=== PATIENT | female | born 1980 | race Caucasian/White ===

== ENCOUNTER 2019-02-27 03:17 | Emergency (ER) | payer OTHER, MEDICAID ==
[~2019-02-27] VITALS: Ht 157.5 cm; Wt 90.7 kg
[~2019-02-27 03:17] MED LIST: CIPROFLOXACIN500 M1 PO; IBUPROFEN 800800 M1 PO; MEDROLDOSEPACK PO; NOHOMEMEDICATIONS; NORCO 5-325 TA1 EACH PO; TAMSULOSIN HCL0.4 M1 PO; VENTOLIN HFA INH8 GM IH; ZPAK PO
[2019-02-27 04:00] VITALS: BP 112/71
[2019-02-27] MEDS ORDERED: NORCO 7.5-3251 EACH PO (04:06)
== END 2019-02-27 04:00 | disposition home or self-care (01) ==
LOC: M.ERS 03:17
DX: S90.212A Contusion of left great toe with damage to nail, initial encounter (principal); W51.XXXA Accidental striking against or bumped into by another person, initial encounter; Y93.89 Activity, other specified; Y92.89 Other specified places as the place of occurrence of the external cause; Y99.8 Other external cause status

== ENCOUNTER 2019-11-21 04:04 | Emergency (ER) | payer OTHER, MEDICAID ==
[~2019-11-21] VITALS: Ht 157.5 cm; Wt 89.4 kg
[~2019-11-21 04:04] MED LIST changes: +NORCO 7.5-3251 EACH PO
[2019-11-21 04:08] VITALS: BP 109/76
[2019-11-21 04:44] LABS: INFLUENZA A ANTIGEN Negative (Negative); INFLUENZA B ANTIGEN Negative (Negative)
[2019-11-21] MEDS ORDERED: PROMETH-CODEIN 65 ML PO (04:49)
== END 2019-11-21 04:53 | disposition home or self-care (01) ==
LOC: M.ERS 04:04
PROVIDERS: Emergency Medicine
DX: J06.9 Acute upper respiratory infection, unspecified (principal)

== ENCOUNTER 2021-08-01 13:23 | Emergency (ER) | payer OTHER, MEDICAID ==
[~2021-08-01] VITALS: Ht 157.5 cm; Wt 87.1 kg
[~2021-08-01 13:23] MED LIST changes: +PROMETH-CODEIN 65 ML PO
[2021-08-01] MEDS ORDERED: ZANAFLEX4 MG PO (15:13)
[2021-08-01] MEDS ORDERED: NAPROSYN500 MG PO (15:13)
[2021-08-01 15:22] VITALS: BP 112/75
== END 2021-08-01 15:24 | disposition home or self-care (01) ==
LOC: M.ERS 13:23
DX: S29.012A Strain of muscle and tendon of back wall of thorax, initial encounter (principal); M53.3 Sacrococcygeal disorders, not elsewhere classified; V49.49XA Driver injured in collision with other motor vehicles in traffic accident, initial encounter; Y93.I9 Activity, other involving external motion; Y92.488 Other paved roadways as the place of occurrence of the external cause; Y99.8 Other external cause status